=== PATIENT | female | born 1955 | race Caucasian/White ===

== ENCOUNTER 2018-07-20 08:50 | Day surgery (SDC) | payer OTHER ==
[~2018-07-20] VITALS: Ht 162.6 cm; Wt 49.9 kg
--- NOTE | ~2018-07-20 | OR ---
[facility] [address] [place] [address] Draft DATE OF OPERATION: 07/20/2018 SURGEON: Parish Roth MD PREOPERATIVE DIAGNOSIS: Mucous cyst right thumb IP joint. POSTOPERATIVE DIAGNOSIS: Mucous cyst right thumb IP joint. PROCEDURE PERFORMED: Excision with small rotational flap. ANESTHESIA: [place] block. COMPLICATIONS: There were no complications. We did send the overlying skin lesion to pathology. WHAT WAS DONE: The patient was taken to the operating room. After [place] block was administered by the anesthesia service, the right upper extremity was positioned, prepped, and draped in a routine sterile fashion. We made a fusiform incision over the cyst and excised the overlying skin and then evacuated the underlying cyst. The small defect in the IP joint was identified and gently rongeured away. We then created a tiny rotation flap and rotated it up into the defect and closed it with 5-0 nylon suture. Sterile dressings were applied, and she was awakened, and taken to recovery room where she arrived in stable condition. Counts were correct and antibiotic protocols were followed. MD ABBY Ventura/NICHOL /[id number] PATIENT NAME: DARCI JARA OPERATIVE REPORT DATE OF : 59 REPORT #: [id number] PHYSICIAN: PARISH ROTH MD PCP: NO PRIMARY CARE PHYSICIAN REPORT IS CONFIDENTIAL AND NOT TO BE RELEASED WITHOUT AUTHORIZATION [address] [address] Draft Copies: ~ PATIENT NAME: JUANITA DARCI SINGH OPERATIVE REPORT DATE OF : 59 REPORT #: [id number] PHYSICIAN: PARISH ROTH MD PCP: NO PRIMARY CARE PHYSICIAN REPORT IS CONFIDENTIAL AND NOT TO BE RELEASED WITHOUT AUTHORIZATION
[~2018-07-20 08:50] MED LIST: WOMEN'S DAILY1 EACH PO
--- NOTE | 2018-07-20 11:46 | NUR ---
07/20/18 1146 Trinidad Marshall 1120- PT ARRIVES TO PACU ALERT AND ORIENTED. REPORTS NO PAIN OR NAUSEA AT THIS TIME. OXYGEN HIGH 90'S TO 100% ON RA. 1126- PT'S RIGHT HAND PLACED ON A PILLOW AND ICE PACK APPLIED.
[2018-07-20] MEDS ORDERED: ULTRAM50 MG PO (12:02)
== END 2018-07-20 12:31 | disposition home or self-care (01) ==
LOC: OPS 08:50 → DS 08:50 → OPS 10:30
PROVIDERS: Orthopaedic Surgery
PROC: 0RBW0ZZ Excision of Right Finger Phalangeal Joint, Open Approach (ICD-10-PCS; principal; 2018-07-20 10:30)
DX: D23.61 Other benign neoplasm of skin of right upper limb, including shoulder (principal); N85.6 Intrauterine synechiae; M19.90 Unspecified osteoarthritis, unspecified site; Z88.5 Allergy status to narcotic agent
CPT/HCPCS: 00400; J0690; J2704; J3010; J7120

== ENCOUNTER 2022-05-17 12:41 | Day surgery (SDC) | payer OTHER ==
[~2022-05-17] VITALS: Ht 162.6 cm; Wt 50.9 kg
[~2022-05-17 12:41] MED LIST changes: +ULTRAM50 MG PO
--- NOTE | 2022-05-17 14:36 | NUR ---
05/17/22 1436 Marnie Arenas 1422 PT ARRIVED IN PACU SLEEPY WITH NO C/O'S. ABD SOFT AND PASSING FLATUS. 1435 RESTING. REU.
--- NOTE | 2022-05-18 08:08 | OR ---
[facility] [address], [place] [address] Signed DATE OF OPERATION: 05/17/2022 SURGEON: Debora Merritt MD PREOPERATIVE DIAGNOSES: 1. Family history of colon cancer (father). 2. History of right volar complex flexor sheath ganglion. POSTOPERATIVE DIAGNOSES: 1. Family history of colon cancer (father). 2. History of right volar complex flexor sheath ganglion. 3. Sigmoid diverticula and low rectal small polyp. PROCEDURES: Total colonoscopy to cecum with cold morcellation polypectomy x1. ANESTHESIA: Intravenous sedation, fentanyl 100 mcg and Versed 4 mg and preoperative treatment, Decadron 4 mg and Zofran 4 mg. INDICATIONS: This 66-year-old white woman is a patient of [facility]. She is referred for colon cancer screening on the basis of family history of colon cancer in her father. The patient had a colonoscopy a number of years ago, which was said to be normal. The patient does describe stephani-procedural nausea and vomiting, for which she is quite concerned. On that basis, antiemetics will be administered prophylactically. She is additionally noted to have on the volar aspect of her right wrist complex tendinous sheath ganglion, which she is scheduled for excision in the future. DESCRIPTION OF PROCEDURE: The patient was brought to the endoscopy suite and placed in lateral decubitus position given intravenous Zofran 4 mg and intravenous Decadron 4 mg prior to the procedure. She was then given intravenous fentanyl and Versed to the point of slurred speech and nystagmus with full cardiopulmonary monitoring. Digital rectal examination was normal. An Olympus video colonoscope was passed into the rectum and manipulated throughout the colon noting several diverticula of the sigmoid and left colon. She had a slightly Electronically Signed By: DEBORA MERRITT MD 05/18/22 0808 PATIENT NAME: DARCI JARA OPERATIVE REPORT DATE OF : 59 REPORT #: [id number] PHYSICIAN: DEBORA MERRITT MD PCP: BRODERICK SERRANO REPORT IS CONFIDENTIAL AND NOT TO BE RELEASED WITHOUT AUTHORIZATION [facility] [address], [place] [address] Signed redundant colon, but ultimately the scope was passed to the cecum, which was fully intubated. The ileocecal valve and appendiceal orifice were normal. The scope was withdrawn from that point and examination throughout showed no sign of polyps, only diverticular changes scattered throughout. Retroflexed view of the rectum showed a very small polyp just above the dentate line, this was excised with cold morcellation technique completely. The scope was straightened, withdrawn, and removed. The patient was taken to the recovery room in good condition. Notably, she has no postoperative nausea and vomiting thus far. ASSESSMENT: 1. Minimal diverticula scattered throughout the colon. 2. Small low rectal polyp. PLAN: We would recommend repeat colonoscopy in 5 years based on family history. We will proceed with right wrist ganglion excision as has been scheduled in the near future. MD AKBAR Daniel/SILKE /[id number] cc: Ramón JIMÉNEZ Copies: ~ Electronically Signed By: DEBORA MERRITT MD 05/18/22 0808 PATIENT NAME: JUANITA SINGHDARCI GRISELDA OPERATIVE REPORT DATE OF : 59 REPORT #: [id number] PHYSICIAN: DEBORA MERRITT MD PCP: BRODERICK SERRANO REPORT IS CONFIDENTIAL AND NOT TO BE RELEASED WITHOUT AUTHORIZATION
== END 2022-05-17 15:00 | disposition home or self-care (01) ==
LOC: OPS 12:41 → DS 12:46 → OPS 13:00 → DS 13:00 → OPS 14:00
PROVIDERS: ATTEND Surgery
PROC: 0DBP8ZX Excision of Rectum, Via Natural or Artificial Opening Endoscopic, Diagnostic (ICD-10-PCS; principal; 2022-05-17 14:00)
DX: Z12.11 Encounter for screening for malignant neoplasm of colon (principal); K57.30 Diverticulosis of large intestine without perforation or abscess without bleeding; K62.1 Rectal polyp; M67.431 Ganglion, right wrist; Z80.0 Family history of malignant neoplasm of digestive organs
CPT/HCPCS: 99153; G0500; J1100; J2250; J2405; J3010; J7121